=== PATIENT | female | born 1990 | race African-American/Black ===

== ENCOUNTER 2022-09-19 10:38 | Emergency (ER) | payer SELFPAY ==
[2022-09-19 11:04] VITALS: BP 109/69; PULSE 76; RESP 18; TEMP 36.9; O2SAT 100
--- NOTE | 2022-09-19 11:29 | ED.GENADULT ---
HPI - General Adult General Chief complaint: Ear/Nose/Throat Problem Stated complaint: Throat hurting, L ear pain Time Seen by Provider: 09/19/22 11:04 History of Present Illness HPI narrative: This 32-year-old female comes in reporting a sore throat for the past 2 or 3 months. She also reports some pain in her left ear. She was reading on [employer] last night and is worried that she might have cancer. 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 She does not report any fevers. She has not had any cough. She states that she smokes marijuana but not tobacco. She does not report any swelling or lumps in her neck or throat. Related Data Previous Rx's Medication Instructions Recorded ketorolac 10 mg tablet 10 mg PO Q8H 5 days #15 tabs 09/19/22 methylprednisolone 4 mg tablets in See Rx Instructions PO .COMPLEX 09/19/22 a dose pack (Medrol (Jay)) #21 ea Allergies Allergy/AdvReac Type Severity Reaction Status Date / Time No Known Drug Allergies Allergy Verified 09/19/22 11:07 Review of Systems Status of ROS: Reports: 10 or more systems reviewed and unremarkable except as noted in History and below Narrative: Constitutional: No fevers, no weight gain or loss. Eyes: No discharge. No vision changes. HENT: No congestion. She reports sore throat and some left ear pain. Cardiovascular: No chest pain, no palpitations. Respiratory: No shortness of breath, no wheezes, no cough. Gastrointestinal: No abdominal pain, no vomiting, no diarrhea. Genitourinary: No dysuria, no hematuria. Musculoskeletal: Normal range of motion. Skin: No rashes, no pruritis. Neurological: No dizziness, weakness, sensory change, speech change. Endo/Heme/Allergies: No bruising or bleeding. No polydipsia. Pysch: no suicidality, no anxiety, no insomnia. All other systems reviewed and are negative. PFSH PFSH Social History Smoking Status: Never smoker Do you use any of these nicotine containing products: None Second hand tobacco smoke exposure: No How often do you have a drink containing alcohol: never AUDIT-C Alcohol total score: 0 Non-prescribed substance use: marijuana (any form) Exam Narrative: Exam Narrative: Constitutional: Well-developed, well-nourished, no acute distress. HEENT: Normocephalic, atraumatic. Tympanic membranes appear normal bilaterally. Oropharynx also appears normal without any exudate or tonsillar hypertrophy. Neck: Normal range of motion. Nontender. Supple. There are no palpable masses in her anterior neck. Heart: Regular. No murmurs. Normal rate. Intact distal pulses. Lungs: Clear to auscultation. No chest discomfort. No wheezes, rhonchi, or rales. Abdomen: Normal bowel sounds. Nontender. No rebound tenderness. Genitalia: Deferred. Back: No midline tenderness. Normal range of motion. Extremities: Normal range of motion. No injury. Skin: Intact. No rash. Warm. No erythema or pallor. Neurologic: No altered sensation. No weakness. Alert and oriented. Psychiatric: No suicidality. No anxiety or depression. No insomnia. Nursing notes and vitals signs are reviewed. Const: Vital Signs, click to edit/add: Vital Signs - 24 hr 09/19/22 11:04 Temperature 98.5 F Pulse Rate [Right Pulse Oximeter] 76 Respiratory Rate 18 Blood Pressure [Ri ght Upper Arm] 109/69 Pulse Oximetry 100 Oxygen Delivery Me thod Room Air Course Vital Signs Vital signs: Initial Vital Signs Temperature 98.5 F 09/19/22 11:04 Temperature Source Oral 09/19/22 11:04 Pulse Rate 76 09/19/22 11:04 Pulse Rhythm 09/19/22 11:04 Pulse Strength 3+ Normal 09/19/22 11:04 Respiratory Rate 18 09/19/22 11:04 Blood Pressure 109/69 09/19/22 11:04 Blood Pressure Mean 82 09/19/22 11:04 Blood Pressure Position Sitting 09/19/22 11:04 Pulse Oximetry 100 09/19/22 11:04 Oxygen Delivery Method 09/19/22 11:04 Vital Signs Temperature 98.5 F 09/19/22 11:04 Pulse Rate 76 09/19/22 11:04 Respiratory Rate 18 09/19/22 11:04 Blood Pressure 109/69 09/19/22 11:04 Pulse Oximetry 100 09/19/22 11:04 Oxygen Delivery Method 09/19/22 11:04 Temperature 98.5 F 09/19/22 11:04 Pulse Rate 76 09/19/22 11:04 Respiratory Rate 18 09/19/22 11:04 Blood Pressure 109/69 09/19/22 11:04 Pulse Oximetry 100 09/19/22 11:04 Oxygen Delivery Method 09/19/22 11:04 Medical Decision Making MDM Narrative Medical decision making narrative: This patient comes in with persistent throat discomfort. Her exam is normal without any sign of tonsillitis, pharyngeal erythema, or palpable mass. A strep test was obtained and returns negative. Her vital signs are also in normal range. It does not appear that this is an infectious process. I did discuss with her other causes including keeping appropriate balance in life. 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 She came in thinking that she needs to have a CT scan of her neck to rule out cancer. I stated that she is not tripping any of those triggers that would normally initiate that kind of study. In a process of shared decision making she declined any further study for now. She did received prescription for Medrol Dosepak and Toradol. I advised her regarding signs and symptoms that would indicate a need for return and re-evaluation. Lab Data Labs: Lab Results 09/19/22 Range/Units 11:12 Group A Strep DNA NOT DETECTED (Not Detectd) Discharge Plan Discharge Clinical Impression: Pharyngitis Patient Disposition: Home, Self-Care Condition: Stable Additional Instructions: Take medication as needed and indicated. Follow up with MD or return if worsening symptoms happen. Prescriptions: New ketorolac 10 mg tablet 10 mg PO Q8H 5 Days Qty: 15 0RF methylprednisolone [Medrol (Jay)] 4 mg tablets,dose pack See Rx Instructions .ROUTE .COMPLEX Qty: 21 0RF Rx Instructions: orally per package directions Follow Up/Referrals: Provider,Not a Local [Primary Care Provider] - Stand Alone Forms: Fees[facility]hth Info Instructions
[2022-09-19 11:45] LABS: Strep A DNA Probe* NOT DETECTED (Not Detectd)
--- OUTSIDE RECORDS SUMMARY | 2022-09-19 12:11 | XMS_ITS | Continuity of Care Document ---
:1990 Author Organization [facility] Address [address] [place] [id number] Care Team Providers Name Role Phone NONE, Primary Care Physician Unavailable Encounter AHFIN [id number] Date(s): 05/25/22 - 05/25/[address] [place] [id number] Encounter Diagnosis Left ear pain (Discharge Diagnosis) - 05/25/22 Discharge Disposition: Home or Self Care Attending Physician: MD Torres Raymond Sher Allergies, Adverse Reactions, Alerts No Known Allergies Medications ibuprofen 600 mg oral tablet = 1 Tab, ORAL, QID, PRN PRN for pain, X 7 Day(s), # 45 Tab, 0 Refill(s), Acute Start Date: 05/25/22 Stop Date: 06/01/22 Status: Ordered Problem List Diagnosis Diagnosis Type Effective Dates Health Status Clinical In formant Service Left ear pain Discharge 05/25/22 Non-Specified Diagnosis Vital Signs Most recent to oldest [Reference 1 2 Range]: Temperature (C) [36-38 DegC] 36.7 DegC (05/25/22 12:26 AM) Peripheral Pulse Rate [60-99 bpm] 72 bpm 81 bpm (05/25/22 1:29 AM) (05/25/22 12:26 AM) Respiratory rate [14-20 br/min] 18 br/min 18 br/mi n (05/25/22 1:29 AM) (05/25/22 12:26 AM) Blood Pressure [90-139/60-89 mmHg] 137/71 mmHg 109/7 0 mmHg (05/25/22 1:29 AM) (05/25/22 12:26 AM) Pulse Oximetry 98 % 100 % (05/25/22 1:29 AM) (05/25/22 12:26 AM) Pulse oximetry method Continuous (05/25/22 1:29 AM) Oxygen delivery Room air (05/25/22 1:29 AM) Temp site Oral (05/25/22 12:26 AM) BP location Right arm (05/25/22 12:26 AM) Peripheral pulse site Pulse oximetry device Pulse oximetry d evice (05/25/22 1:29 AM) (05/25/22 12:26 AM) Weight (kg) 58.63 kg (05/25/22 12:26 AM) Dose calculation weight (kg) 58.63 kg (05/25/22 12:26 AM) Body Mass Index [30 kg/m2] 23.64 kg/m2 (05/25/22 12:26 AM) Weight measured method Stated (05/25/22 12:26 AM) Height/Length (cm) 157.48 cm (05/25/22 12:26 AM) [place] Body Weight Calculated 50.1 (05/25/22 12:26 AM) Social History Social History Type Response Sex Female Patient Care team information PersonnelName: NONE,
== END 2022-09-19 12:35 | disposition home or self-care (01) ==
PROVIDERS: Emergency Provider Emergency Medicine Emergency Medical Services
DX: J02.9 Acute pharyngitis, unspecified (principal)
CPT/HCPCS: 87651; 99283; 99284